=== PATIENT | female | born 1990 | race Caucasian/White ===

== ENCOUNTER 2024-09-26 07:02 | Emergency (ER) | payer OTHER, SELFPAY ==
[2024-09-26 07:16] VITALS: BP 112/69; PULSE 105; RESP 18; TEMP 36.6; O2SAT 99; BMI 28.0
--- NOTE | 2024-09-26 07:22 | ED.GENADULT ---
HPI - General Adult General Chief complaint: Upper Respiratory Symptoms Stated complaint: Possible strep throat. Time Seen by Provider: 09/26/24 07:09 Source: patient Mode of arrival: Ambulatory History of Present Illness HPI narrative: 34-year-old individual presents with increasing sore throat over the last 36 hours. Redness, low-grade temperatures, no cough no ear pain. Son was recently diagnosed with strep throat is currently on antibiotics. Mac has had difficulties with strep throat as a child but nothing as an adult. No other complaints Related Data Previous Rx's Medication Instructions Recorded amoxicillin 500 mg capsule 500 mg PO TID #21 caps 09/26/24 fluconazole 100 mg tablet 100 mg PO DAILY 2 days #2 tabs 09/26/24 (Diflucan) Allergies Allergy/AdvReac Type Severity Reaction Status Date / Time No Known Drug Allergies Allergy Verified 09/26/24 07:19 Review of Systems Review of Systems Narrative: Pertinent positive and negative findings as per HPI Patient History Smoking Status: Never smoker Exam Initial Vital Signs Initial Vital Signs: Vital Signs Temperature 98 F 09/26/24 07:16 Pulse Rate 105 H 09/26/24 07:16 Respiratory Rate 18 09/26/24 07:16 Blood Pressure 112/69 09/26/24 07:16 Pulse Oximetry 99 09/26/24 07:16 Oxygen Delivery Method Room Air 09/26/24 07:16 General: Alert appropriate in no acute distress HEENT: Mildly erythematous posterior pharynx, no significant exudate, minor cervical adenopathy Respiratory: Able to speak in full sentences, no obvious respiratory distress Skin: No obvious rashes, warm and dry Neurologic: Grossly intact no obvious asymmetries or abnormalities Psych: appropriate insight and affect, cooperative Course Vital Signs Vital signs: Vital Signs - 8 hr 09/26/24 07:16 Temperature 98 F Pulse Rate 105 H Respiratory Rate 18 Blood Pressure 112/69 Pulse Oximetry 99 Oxygen Delivery Method Room Air Medical Decision Making [facility] Narrative Medical decision making narrative: 34-year-old trans gentleman comes in with sore throat with son testing positive for strep throat and currently on antibiotics. No other signs or symptoms no signs of sepsis or complicating factors. We will treat with amoxicillin for 7 days for presumptive strep throat. Prescription for Diflucan given should they develop yeast infection. Questions are answered no indication for additional testing, further workup or hospitalization and they are safe for discharge Discharge Plan Departure Patient Disposition: Home Clinical Impression: Exposure to strep throat Pharyngitis Qualifiers: Pharyngitis/tonsillitis etiology: streptococcus Qualified Code(s): J02.0 - Streptococcal pharyngitis Instructions: DI for Strep Throat Activity Restrictions/Additional Instructions: Thank you for coming in today With symptoms and exposure to strep throat, I am going to treat you with antibiotics regardless of testing so we will hold on the testing today. I have sent a prescription for amoxicillin 3 times a day for 7 days Amoxicillin can cause yeast infections, if you are having vaginal irritation by the end of the antibiotic course, fill the Diflucan prescription, take 1 pill on the last day of your antibiotic course and then another one 48 hours later If you find that you are getting worse or develop any new symptoms, please feel free to return to the emergency department for further evaluation. Prescriptions: New amoxicillin 500 mg capsule 500 mg PO TID Qty: 21 0RF fluconazole [Diflucan] 100 mg tablet 100 mg PO DAILY 2 Days Qty: 2 0RF Rx Instructions: First final day of antibiotics, then 48 hours later for symptoms of vaginitis Stand Alone Forms: Patient Portal/API/Survey
== END 2024-09-26 07:34 | disposition home or self-care (01) ==
LOC: ED 07:43
PROVIDERS: Emergency Provider Emergency Medicine
DX: J02.0 Streptococcal pharyngitis (principal)
CPT/HCPCS: 99281